=== PATIENT | female | born 1940 | race Hispanic/Latino ===

== ENCOUNTER 2017-09-25 08:48 | Inpatient (IN) | payer MEDICARE, BC ==
[2017-09-25 09:06] VITALS: BMI 31.2
[2017-09-25] MEDS ORDERED: Albuterol-Ipratrop 3 mg / 0.5 (3 ml) UD IH STA (09:11)
[2017-09-25] MEDS ORDERED: Azithromycin 500MG/NS 250ml 500 MG/250 ML BAG IVPB STA (09:11)
--- NOTE | 2017-09-25 09:15 | ED PDOC ---
Arrival/HPI - General Chief Complaint: Flu-like Symptoms Time Seen by Provider: 09/25/17 09:02 Historian: Patient - History of Present Illness Time/Duration: Other (2 days) Symptom Onset: Gradual Symptom Course: Worsening Severity Level: Moderate Activities at Onset: Rest Associated Symptoms (Text): 09/25/17 09:13 Patient presents via ambulance [place] the cruise ship. Reports a 2 day history of a cough productive of green sputum with shortness of breath feeling feverish with chills. There has been wheezing. She was seen by the cruise ship doctor this morning and found to be hypoxic with a pulse oximetry of 90. She was febrile to 103. She had an elevated white blood cell count of 28,000. There was pneumonia on her chest x-ray. She was treated with high flow nebulizer treatments and Rocephin IV. She was transported to the emergency department via ambulance. Family/Social History - Physician Review Nursing Documentation Reviewed: Yes Family/Social History: Unknown Family HX Smoking Status: Former Smoker (Quit smoking 20 years ago) Hx Alcohol Use: Yes Frequency of alcohol use: Socially Hx Substance Use: No Allergies/Home Meds Allergies/Adverse Reactions: Allergies No Known Allergies Allergy (Verified 09/25/17 12:01) Home Medications: Home Meds Medication Instructions Recorded Confirmed Albuterol 0.083% [Albuterol 0.083% 1 vial NEB Q6 PRN 09/25/17 09/25/17 Inhal Cecilia (2.5 mg/3 ml) UD] Atorvastatin [Lipitor] 10 mg PO DAILY 09/25/17 09/25/17 Eszopiclone [Lunesta] 3 mg PO HS 09/25/17 09/25/17 Lamotrigine [Lamictal] 200 mg PO DAILY 09/25/17 09/25/17 Mometasone/Formoterol [Dulera 100 1 puff NEB DAILY 09/25/17 09/25/17 Mcg/5 Mcg Inhaler] Montelukast [Singulair] 10 mg PO DAILY 09/25/17 09/25/17 Pantoprazole Sodium [Protonix] 40 mg PO DAILY 09/25/17 09/25/17 Tiotropium [Spiriva] 1 cap PO BID 09/25/17 09/25/17 Valsartan [Diovan] 160 mg PO DAILY 09/25/17 09/25/17 Venlafaxine [Effexor] 37.5 mg PO DAILY 09/25/17 09/25/17 Review of Systems - Physician Review All systems were reviewed & negative as marked: Yes - Review of Systems Constitutional: Fatigue, Fevers Respiratory: SOB, Cough, Sputum, Wheezing Cardiovascular: absent: Chest Pain Gastrointestinal: absent: Abdominal Pain, Nausea, Vomiting Neurological: absent: Headache, Dizziness Physical Exam Vital Signs Temp Pulse Resp BP Pulse Ox 09/25/17 12:06 18 113/63 97 09/25/17 09:02 98.1 F 108 H 16 113/63 91 L Temperature: Afebrile Blood Pressure: Normal Pulse: Tachycardic Respiratory Rate: Normal Appearance: Positive for: Well-Appearing, Non-Toxic, Comfortable, Uncomfortable Pain Distress: None Mental Status: Positive for: Alert and Oriented X 3 - Systems Exam Head: Present: Atraumatic, Normocephalic Pupils: Present: PERRL Extroacular Muscles: Present: EOMI Conjunctiva: Present: Normal Ears: Present: NORMAL TM, Normal Canal. No: Erythema, TM Bulging Mouth: Present: Moist Mucous Membranes Pharnyx: No: ERYTHEMA, EXUDATE, TONSILS ENLARGED Neck: Present: Normal Range of Motion Respiratory/Chest: Present: Wheezes, Decreased Breath Sounds, Rhonchi. No: Respiratory Distress, Accessory Muscle Use, Rales, Retracting, Tachypneic Cardiovascular: Present: Regular Rate and Rhythm, Tachycardic Abdomen: No: Tenderness, Distention, Peritoneal Signs, Rebound, Guarding Upper Extremity: Present: Normal Inspection. No: Cyanosis, Edema Lower Extremity: Present: Normal Inspection. No: Edema Neurological: Present: GCS=15, CN II-XII Intact, Speech Normal, Motor Func Grossly Intact Skin: Present: Warm, Dry, Normal Color. No: Rashes Psychiatric: Present: Alert, Oriented x 3, Normal Insight, Normal Concentration Medical Decision Making ED Course and Treatment: 09/25/17 12:27 EKG shows sinus tachycardia rate approximately 105 with poor R-wave progression and nonspecific ST and T-wave changes and no old available for comparison. - Lab Interpretations Lab Results: 09/25/17 09:25 09/25/17 09:25 Lab Results 09/25/17 09:25: Sodium 143, Chloride 109 H, Potassium 3.7, Carbon Dioxide 18 L, Anion Gap 20, BUN 29 H, Creatinine 1.5 H, Est GFR ( Amer) 41, Est GFR ( Non-Af Amer) 34, Random Glucose 148 H, Calcium 9.7, Phosphorus 2.6, Magnesium 2.3 H, Total Bilirubin 0.4, AST 18, ALT 26, Alkaline Phosphatase 87, Total Protein 6.0, Albumin 3.7, Globulin 2.3, Albumin/Globulin Ratio 1.6 09/25/17 09:25: pO2 210 H, VBG pH 7.37, VBG pCO2 35.0 L, VBG HCO3 20.2 L, VBG Total CO2 21.3 L, VBG O2 Sat (Calc) 98.5 H, VBG Base Excess -4.4 L, VBG Potassium 4.1, Sodium 136.0, Chloride 108.0 H, Glucose 163 H, Lactate 1.6, FiO2 21.0, Venous Blood Potassium 4.1 09/25/17 09:25: Urine Color Yellow, Urine Appearance Slight-cloudy, Urine pH 6.0 , Ur Specific [place] 1.025, Urine Protein 100 H, Urine Glucose (UA) Negative, Urine Ketones Negative, Urine Blood Negative, Urine Nitrate Negative, Urine Bilirubin Negative, Urine Urobilinogen 0.2, Ur Leukocyte Esterase Small H, Urine RBC 0 - 2, Urine WBC 5 - 10, Ur Epithelial Cells 10 - 12, Amorphous Sediment Small 09/25/17 09:25: WBC 28.7 H*, RBC 4.13, Hgb 10.0 L, Hct 31.9 L, MCV 77.2 L, MCH 24.2 L, MCHC 31.3, RDW 17.2 H, Plt Count 340, MPV 9.2, Gran % 84.1 H, Lymph % ( Auto) 7.1 L, [place]ell % (Auto) 8.8 H, Eos % (Auto) 0.0 L, Baso % (Auto) 0.0, Gran # 24.16 H, Lymph # (Auto) 2.0, Howell # (Auto) 2.5 H, Eos # (Auto) 0.0, Baso # (Auto ) 0.01 - RAD Interpretation Radiology Orders: 09/25/17 09:10 CHEST PORTABLE [RAD] Stat Chest one view shows a positive right-sided infiltrate. 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 - Medication Orders Current Medication Orders: Acetaminophen (Tylenol 325mg Tab) 650 mg PO Q6H PRN PRN Reason: Fever >100.4 F Albuterol/Ipratropium (Duoneb 3 Mg/0.5 Mg (3 Ml) Ud) 3 ml IH Q2H PRN PRN Reason: Shortness of Breath Albuterol/Ipratropium (Duoneb 3 Mg/0.5 Mg (3 Ml) Ud) 3 ml IH [id number] [facility] Last Admin: 09/25/17 13:16 Dose: 3 ml Aspirin (Ecotrin) 81 mg PO 0800 [facility] Ceftriaxone Sodium (Rocephin 1 Gram Ivpb) 1 gm in 100 mls @ 100 mls/hr IVPB DAILY [facility] PRN Reason: Protocol Last Admin: 09/25/17 12:19 Dose: 100 mls/hr eMAR Start Stop Document 09/25/17 12:19 OCS (Rec: 09/25/17 12:19 [facility]CS [id number]) Intravenous Solution Start Date 09/25/17 Start Time 12:19 Azithromycin (Zithromax 500mg In Ns) 500 mg in 250 mls @ 167 mls/hr IVPB DAILY [facility] PRN Reason: Protocol Lamotrigine (Lamictal) 200 mg PO DAILY [facility] Methylprednisolone (Solu-Medrol) 40 mg IV Q12 [facility] Montelukast Sodium (Singulair) 10 mg PO DAILY [facility] Last Admin: 09/25/17 12:19 Dose: 10 mg Ondansetron HCl (Zofran Inj) 4 mg IVP Q6H PRN PRN Reason: Nausea/Vomiting Pantoprazole Sodium (Protonix Ec Tab) 40 mg PO 0630 [facility] Venlafaxine HCl (Effexor) 37.5 mg PO DAILY [facility] Discontinued Medications Albuterol/Ipratropium (Duoneb 3 Mg/0.5 Mg (3 Ml) Ud) 3 ml IH ONCE STA Stop: 09/25/17 09:12 Last Admin: 09/25/17 09:43 Dose: 3 ml Azithromycin (Zithromax 500mg In Ns) 500 mg in 250 mls @ 167 mls/hr IVPB STAT [facility] PRN Reason: Protocol Stop: 09/25/17 10:40 Last Admin: 09/25/17 09:44 Dose: 167 mls/hr eMAR Start Stop Document 09/25/17 09:44 SF (Rec: 09/25/17 09:44 SF [id number]) Intravenous Solution Start Date 09/25/17 Start Time 09:44 End Date 09/25/17 End time 11:15 Total Infusion Time 91 Lamotrigine (Lamictal) 200 mg PO .EXTRA DOSE ONE Stop: 09/25/17 11:31 Non-Formulary Medication (Lamotrigine [Lamictal]) 200 mg PO DAILY [facility] Pneumococcal Polyvalent Vaccine (Pneumovax 23 Vaccine) 0.5 ml IM .ONCE ONE Stop: 09/25/17 14:07 Disposition/Present on Arrival - Present on Arrival Any Indicators Present on Arrival: No History of DVT/PE: No History of Uncontrolled Diabetes: No Urinary Catheter: No History of Decub. Ulcer: No - Disposition Have Diagnosis and Disposition been Completed?: Yes Diagnosis: Pneumonia, Hypoxia, Fever, Leukocytosis, Anemia, Dehydration, Renal failure, Dyspnea Disposition: HOSPITALIZED Disposition Time: 10:11 Patient Plan: Admission Patient Problems: Current Active Problems Problem Status Onset Anemia Acute Dehydration Acute Dyspnea Acute Fever Acute Hypoxia Acute Leukocytosis Acute Pneumonia Acute Renal failure Acute Condition: FAIR
[2017-09-25 09:51] LABS: BASO # 0.01 K/mm3 (0.0-2.0); GRAN # 24.16 (1.4-6.5); GRAN % 84.1 % (50.0-68.0); LYMPH % 7.1 % (22.0-35.0); MEAN CELL VOLUME 77.2 fl (80.0-105.0); MEAN CORPUSCULAR HEMOGLOBIN 24.2 pg (25.0-35.0); MEAN CORPUSCULAR HGB CONC 31.3 g/dl (31.0-37.0); MEAN PLATELET VOLUME 9.2 fl (7.0-11.0); MONO # 2.5 (0.1-0.6); MONO % 8.8 % (1.0-6.0); RBC 4.13 10^6/uL (3.5-6.1); RED CELL DISTRIBUTION WIDTH 17.2 % (11.5-14.5)
[2017-09-25 09:53] LABS: VENOUS BLOOD GAS BASE EXCESS -4.4 mmol/L (0.0-2.0); VENOUS BLOOD GAS PO2 210 mm/Hg (30-55); VENOUS BLOOD PH 7.37 (7.32-7.43); WHITE BLOOD COUNT 28.7 10^3/ul (4.5-11.0)
[2017-09-25 10:03] LABS: ALB/GLOB RATIO 1.6 (1.1-1.8); ALBUMIN 3.7 g/dL (3.0-4.8); CALCIUM 9.7 mg/dL (8.4-10.5)
[2017-09-25 10:07] LABS: URINE BILIRUBIN NEGATIVE (NEGATIVE); URINE BLOOD NEGATIVE (NEGATIVE); URINE GLUCOSE (UA) NEGATIVE (NEGATIVE); URINE LEUKOCYTE ESTERASE SMALL Leu/uL (NEGATIVE); URINE PROTEIN 100 mg/dL (<30 mg/dL); URINE UROBILINOGEN 0.2 E.U./dL (<1 E.U./dL)
[2017-09-25 10:08] LABS: URINE COLOR YELLOW (YELLOW)
[2017-09-25 10:09] LABS: URINE APPEARANCE SLIGHT-CLOUDY (CLEAR)
[2017-09-25] MEDS ORDERED: Albuterol-Ipratrop 3 mg / 0.5 (3 ml) UD IH PRN (11:12)
[2017-09-25 11:29] LABS: URINE AMORPHOUS SEDIMENT SMALL; URINE RBC 0 - 2 /hpf (0-2)
[2017-09-25] MEDS: cefTRIAXone 1 gm 1 GM/100 ML BAG IVPB SCH (12:19)
[2017-09-25] MEDS: Albuterol-Ipratrop 3 mg / 0.5 (3 ml) UD IH SCH ×2 (13:16→21:21)
--- NOTE | 2017-09-25 13:34 | RAD ---
HISTORY: Sepsis Patient COMPARISON: No prior. FINDINGS: LUNGS: Patchy atelectasis and or infiltrate changes seen in the right mid to lower lung zone. Suspect minor left basilar atelectasis or scarring. PLEURA: No significant pleural effusion identified, no pneumothorax apparent. CARDIOVASCULAR: Heart size within range of normal. There is a radiopaque density overlying the mid cardiac silhouette which could represent a hiatal hernia OSSEOUS STRUCTURES: No significant abnormalities. VISUALIZED UPPER ABDOMEN: Normal. OTHER FINDINGS: None. IMPRESSION: Patchy atelectasis and or infiltrate changes seen in the right mid to lower lung zone. Suspect minor left basilar atelectasis or scarring.
[2017-09-25] MEDS ORDERED: Pneumococcal 23-Valent Vaccine IM ONE (14:06)
--- NOTE | 2017-09-25 14:08 | CT ---
PROCEDURE: CT Chest without contrast HISTORY: SOB COMPARISON: Correlation made with chest radiograph obtained earlier same day TECHNIQUE: Contiguous axial images were obtained through the chest without intravenous contrast enhancement. Sagittal and coronal reconstructions were performed. Radiation dose (DLP): 534.98 mGy-cm. This CT exam was performed using one or more of the following dose reduction techniques: Automated exposure control, adjustment of the mA and/or kV according to patient size, and/or use of iterative reconstruction technique. . FINDINGS: LUNGS: Patchy infiltrate changes seen in the right middle lobe with what appears represent associated bronchiectasis -atelectasis, fibrosis and or scarring changes. . There also areas of ground-glass opacity seen in the left upper lobe with linear atelectasis/scarring in the right lung base and left lingular regions. . Note also made of localized on herniation of lung parenchyma through the right lower intercostal spaces in 2 locations. MEDIASTINUM: Heart size is within range of normal. No significant pericardial effusion. Ascending thoracic aorta measures approximately 3.1 cm and descending thoracic aorta measures approximately 2.6 cm. Right brachiocephalic and left carotid artery arise from a common trunk. Pulmonary trunk measures approximately 2.6 cm. . There does appear to be a small amount of fluid within the superior pericardial the the recess. PLEURA: No pleural fluid. No pneumothorax. BONES: Minor multilevel degenerative spondylosis of the thoracic spine. There are no acute compression fractures no retropulsed fragments. UPPER ABDOMEN: There is a small approximately 11.4 mm elliptical shaped low-attenuation focus in the caudate lobe liver that probably represents small cyst. 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 OTHER FINDINGS: None. IMPRESSION: Patchy infiltrate changes seen in the right middle lobe with what appears represent associated bronchiectasis -atelectasis, fibrosis and or scarring changes. . There also areas of ground-glass opacity seen in the left upper lobe with linear atelectasis/scarring in the right lung base and left lingular regions. . Note also made of localized on herniation of lung parenchyma through the right lower intercostal spaces in 2 locations.
[2017-09-25] MEDS: Pantoprazole 40 mg EC Tab PO SCH (17:57)
[2017-09-25] MEDS: MethylPREDNISolone 40 mg Vial IV SCH (22:38)
[2017-09-26] MEDS: Albuterol-Ipratrop 3 mg / 0.5 (3 ml) UD IH SCH ×4 (02:54→21:10)
--- NOTE | 2017-09-26 05:29 | HP ---
HISTORY OF PRESENT ILLNESS: The patient is 76-year-old who was in cruise. The patient resides in [place]. She just came back from cruise. She was having cough and congestion. She was found to be hypoxic in the cruise, so she was brought to emergency room for further evaluation. Denies any fever. Did complain of increasing cough, congestion with productive thick yellow phlegm. Denies any chest pain. Does complain of shortness of breath. No history of nausea. No abdominal pain. No hemoptysis. No hematemesis. PAST MEDICAL HISTORY: Significant for: 1. Hypertension. 2. COPD and asthma. 3. History of depression. 4. History of esophageal reflux disease. 5. Seizure disorder. 6. Hyperlipidemia. ALLERGIES: SHE IS ALLERGIC TO CAT DANDER AND MOLD. MEDICATION AT HOME: She is on Lunesta. She is on Effexor 200 daily, valsartan 160 daily, Spiriva one inhaler daily, Protonix 40 daily, Singulair 10 mg daily, Advair, Lamictal 200 mg daily, Lipitor 10 mg daily. SOCIAL HISTORY: She is . Lives with her , used to be smoker, but not anymore, quit couple of years ago. Socially drinks. REVIEW OF SYSTEMS: Significant for cough, congestion and shortness of breath. PHYSICAL EXAMINATION: GENERAL: The patient is awake, alert, and oriented. Mild shortness of breath. VITAL SIGNS: She is afebrile, pulse 96, respirations 20, blood pressure 104/50. LUNGS: Bilateral soft crackle at bases. HEART: S1 and S2 audible. ABDOMEN: Soft, obese, nontender. No rebound. No guarding. NEUROLOGICAL: She is awake, alert, oriented, communicative. LABORATORY DATA: WBC is 28.7, hemoglobin 10, hematocrit 31.9, platelets 340. Chemistry: Sodium 143, potassium 3.7, chloride 109, CO2 is 18, BUN 29, creatinine 1.5. Blood sugar of 148. Magnesium 2.3. Procalcitonin 0.6. Urinalysis shows mild leukocytes. CT scan of the chest was done that shows fatty infiltrate in the right middle lobe which appears bronchiectasis, fibrosis and scarring. Also ground glass opacity seen in the left upper lobe. ASSESSMENT: 1. Right middle lobe pneumonia and left upper lobe pneumonia. 2. History of chronic obstructive pulmonary disease. 3. Hypertension. 4. Hyperlipidemia. 5. Moderate obesity. PLAN: The patient has been started on Rocephin. We will add atypical coverage and the patient will receive Zithromax. Start her on small dose of steroid and ID consult by Dr. Welsh has been requested. Samina Reynolds MD
[2017-09-26] MEDS: Pantoprazole 40 mg EC Tab PO SCH ×2 (06:09→17:06)
[2017-09-26] MEDS ORDERED: Pantoprazole 40 mg EC Tab PO SCH (06:30)
[2017-09-26] MEDS: cefTRIAXone 1 gm 1 GM/100 ML BAG IVPB SCH (09:18)
[2017-09-26] MEDS: Venlafaxine 75 mg ER Cap PO SCH (09:20)
[2017-09-26] MEDS: MethylPREDNISolone 40 mg Vial IV SCH ×2 (09:20→21:37)
--- NOTE | 2017-09-26 09:30 | CARD ---
APPROVED REPORT EKG Measurement Heart [id number] [place] [id number] <Conclusion> Sinus tachycardia Possible Left atrial enlargement Nonspecific ST and T wave abnormality QS in V1, possible septal NM, age unknown
[2017-09-26] MEDS: Azithromycin 500MG/NS 250ml 500 MG/250 ML BAG IVPB SCH (12:20)
--- NOTE | 2017-09-26 14:42 | CP.PCM.CON ---
History of Present Illness - History of Present Illness History of Present Illness: 76 year old female with PMH of COPD, obesity with BMI 31 was on a cruise ship when she started developing cough productive of greenish phlegm, associated with shortness of breath and dyspnea on exertion. She had subjective chills. She denies headache or dizziness, no chest pain, no sore throat, no rhinorrhea, no abdominal pain, no nausea or vomiting, no diarrhea, no dysuria, no hematuria. CXR and CT chest were done which is showing multilobar infiltrates. As per patient, she was given antibiotics about a month ago for respiratory infection. She denies interacting with specific animals during the cruise. The cruise went to the [facility]. Infectious diseases consult is requested to further evaluate and manage. Review of Systems - Review of Systems All systems: reviewed and no additional remarkable complaints except (as per HPI ) Past Patient History - Past Social History Smoking Status: Former Smoker (Quit smoking 20 years ago) - CARDIAC Hx Cardiac Disorders: Yes Hx Hypercholesterolemia: Yes Hx Hypertension: Yes - PULMONARY Hx Respiratory Disorders: Yes (smoked cigarettes quit 20 yrs ago.) Hx Asthma: Yes Hx Pneumonia: Yes (09-25-17) - NEUROLOGICAL Hx Neurological Disorder: No - HEENT Hx HEENT Problems: Yes (trheaomalacia with sx,tonsillectomy) Hx Cataracts: Yes (with sx) - RENAL Hx Chronic Kidney Disease: No - ENDOCRINE/METABOLIC Hx Endocrine Disorders: No - HEMATOLOGICAL/ONCOLOGICAL Hx Blood Disorders: Yes Hx Anemia: Yes - INTEGUMENTARY Hx Dermatological Problems: No - MUSCULOSKELETAL/RHEUMATOLOGICAL Hx Musculoskeletal Disorders: No Hx Falls: No - GASTROINTESTINAL Hx Gastrointestinal Disorders: Yes Hx Gastroesophageal Reflux: Yes - GENITOURINARY/GYNECOLOGICAL Hx Genitourinary Disorders: No - PSYCHIATRIC Hx Substance Use: No - SURGICAL HISTORY Hx Surgeries: Yes (bilateral cataract sx,tonsillectomy) Other/Comment: Tracheomalacia repair Meds Allergies/Adverse Reactions: Allergies Allergy/AdvReac Type Severity Reaction Status Date / Time cat dander Allergy SHORTNESS Verified 09/25/17 14:19 OF BREATH mold Allergy SHORTNESS Verified 09/25/17 14:19 OF BREATH - Medications Medications: Current Medications Acetaminophen (Tylenol 325mg Tab) 650 mg PO Q6H PRN PRN Reason: Fever >100.4 F Albuterol/Ipratropium (Duoneb 3 Mg/0.5 Mg (3 Ml) Ud) 3 ml IH Q2H PRN PRN Reason: Shortness of Breath Albuterol/Ipratropium (Duoneb 3 Mg/0.5 Mg (3 Ml) Ud) 3 ml IH [id number] [facility] Last Admin: 09/25/17 21:21 Dose: 3 ml Aspirin (Ecotrin) 81 mg PO 0800 [facility] Ceftriaxone Sodium (Rocephin 1 Gram Ivpb) 1 gm in 100 mls @ 100 mls/hr IVPB DAILY [facility] PRN Reason: Protocol Last Admin: 09/25/17 12:19 Dose: 100 mls/hr Azithromycin (Zithromax 500mg In Ns) 500 mg in 250 mls @ 167 mls/hr IVPB DAILY [facility] PRN Reason: Protocol Lamotrigine (Lamictal) 200 mg PO DAILY [facility] Methylprednisolone (Solu-Medrol) 40 mg IV Q12 [facility] Montelukast Sodium (Singulair) 10 mg PO DAILY [facility] Last Admin: 09/25/17 12:19 Dose: 10 mg Ondansetron HCl (Zofran Inj) 4 mg IVP Q6H PRN PRN Reason: Nausea/Vomiting Pantoprazole Sodium (Protonix Ec Tab) 40 mg PO 0600,1800 [facility] Last Admin: 09/25/17 17:57 Dose: 40 mg Venlafaxine HCl (Effexor Xr) 225 mg PO DAILY [facility] Zolpidem Tartrate (Ambien) 5 mg PO HS [facility] PRN Reason: Protocol Physical Exam - Constitutional Appears: Chronically Ill - Head Exam Head Exam: NORMAL INSPECTION - ENT Exam ENT Exam: Mucous Membranes Moist - Neck Exam Neck exam: Negative for: Meningismus - Respiratory Exam Respiratory Exam: Decreased Breath Sounds, Rales, Wheezes - Cardiovascular Exam Cardiovascular Exam: +S1, +S2 - GI/Abdominal Exam GI & Abdominal Exam: Soft. absent: Tenderness Results - Vital Signs Recent Vital Signs: Last Vital Signs Temp 97.8 F 09/25/17 14:00 Pulse 96 H 09/25/17 14:00 Resp 20 09/25/17 14:00 BP 104/49 L 09/25/17 14:00 Pulse Ox 96 09/25/17 14:00 - Labs Result Diagrams: 09/25/17 09:25 09/25/17 09:25 Labs: Laboratory Results - last 24 hr 09/25/17 12:00 Procalcitonin 0.60 H Assessment & Plan - Assessment and Plan (Free Text) Plan: Assessment Severe sepsis with acute renal failure due to multifocal HCAP (exposure to antibiotics in the last month) COPD obesity with BMI 31 Plan Patient was started on Rocephin and Zithromax - will change Rocephin to a dose of IV Vancomycin and cefepime pending blood, sputum cx; reviewed CT chest; PCT is elevated 0.6; will also check urine Legionella Ag will monitor clinically
[2017-09-26] MEDS ORDERED: Vancomycin 1.5 GM in Sodium Chloride 0.9% 500 ML IVPB ONE (14:45)
[2017-09-26] MEDS: Cefepime IV 2 gm in NS 2 GM/100 ML BAG IVPB SCH ×2 (15:17→21:36)
--- NOTE | 2017-09-26 17:27 | PN ---
DATE: 09/26/2017 SUBJECTIVE: The patient is 76 years old, seen and examined. She states she feels a lot better. Denies any nausea or vomiting. No diarrhea. She states her cough and congestion has improved since she is admitted since yesterday. PHYSICAL EXAMINATION: GENERAL: She is sitting in libia, seems to be comfortable. VITAL SIGNS: She is afebrile, pulse 92, respirations 20, blood pressure 120/63. LUNGS: Bilateral fair airflow. Has soft crackle in the left middle and the lower lung region. HEART: S1 and S2 audible. ABDOMEN: Soft, obese. Nontender. No rebound. No guarding. NEUROLOGIC: She is awake, alert, oriented, communicative. LABORATORY EXAM: Blood cultures are negative. Procalcitonin is 0.50. ASSESSMENT: 1. Community-acquired pneumonia. 2. Mild renal insufficiency. 3. History of chronic obstructive pulmonary disease. 4. Leukocytosis. 5. History of depression. 6. History of gastroesophageal reflux disease. PLAN: We will continue the patient on Maxipime. She is on Zithromax. I will request for Physical Therapy evaluation. Follow up CBC and CMP in the a.m. Samina Reynolds MD
[2017-09-27] MEDS: Albuterol-Ipratrop 3 mg / 0.5 (3 ml) UD IH SCH ×4 (02:49→21:15)
[2017-09-27] MEDS: Pantoprazole 40 mg EC Tab PO SCH ×2 (05:49→18:04)
[2017-09-27 07:24] LABS: GRAN # 16.2 (1.4-6.5); GRAN % 84.3 % (50.0-68.0); LYMPH # 1.7 (1.2-3.4); LYMPH % 8.8 % (22.0-35.0); MEAN CELL VOLUME 77.7 fl (80.0-105.0); MEAN CORPUSCULAR HEMOGLOBIN 23.9 pg (25.0-35.0); MEAN CORPUSCULAR HGB CONC 30.8 g/dl (31.0-37.0); MEAN PLATELET VOLUME 9.1 fl (7.0-11.0); MONO # 1.3 (0.1-0.6); MONO % 6.9 % (1.0-6.0); RBC 3.76 10^6/uL (3.5-6.1); RED CELL DISTRIBUTION WIDTH 17.2 % (11.5-14.5); WHITE BLOOD COUNT 19.2 10^3/ul (4.5-11.0)
[2017-09-27 07:37] LABS: ALB/GLOB RATIO 1.5 (1.1-1.8); ALBUMIN 3.3 g/dL (3.0-4.8); CALCIUM 9.9 mg/dL (8.4-10.5)
[2017-09-27 07:47] LABS: FREE T4 1.09 ng/dL (0.78-2.19)
[2017-09-27] MEDS: Cefepime IV 2 gm in NS 2 GM/100 ML BAG IVPB SCH ×2 (09:25→22:09)
[2017-09-27] MEDS: Venlafaxine 75 mg ER Cap PO SCH (09:33)
[2017-09-27] MEDS: Azithromycin 500MG/NS 250ml 500 MG/250 ML BAG IVPB SCH (09:34)
[2017-09-27] MEDS: MethylPREDNISolone 40 mg Vial IV SCH (09:34)
[2017-09-27] MEDS ORDERED: POLYETHYLENE GLYCOL 3350 17 GM/Dose PACKET PO ONE (11:18)
--- NOTE | 2017-09-27 13:34 | CP.PCM.PN ---
Subjective - Date & Time of Evaluation Date of Evaluation: 09/27/17 Time of Evaluation: 10:50 - Subjective Subjective: Comfortable, breathing better, no nausea, no diarrhea, cough is slowly improving , no fevers. Objective - Vital Signs/Intake and Output Vital Signs (last 24 hours): Temp Pulse Resp BP Pulse Ox 97.5 F L 71 20 140/56 L 99 09/27/17 08:21 09/27/17 08:21 09/27/17 08:21 09/27/17 08:21 09/27/17 08:21 Intake and Output: 09/27/17 09/27/17 06:59 18:59 Intake Total 700 Balance 700 - Medications Medications: Current Medications Acetaminophen (Tylenol 325mg Tab) 650 mg PO Q6H PRN PRN Reason: Fever >100.4 F Albuterol/Ipratropium (Duoneb 3 Mg/0.5 Mg (3 Ml) Ud) 3 ml IH Q2H PRN PRN Reason: Shortness of Breath Albuterol/Ipratropium (Duoneb 3 Mg/0.5 Mg (3 Ml) Ud) 3 ml IH [id number] [facility] Last Admin: 09/27/17 08:18 Dose: 3 ml Aspirin (Ecotrin) 81 mg PO 0800 [facility] Last Admin: 09/27/17 08:32 Dose: 81 mg Atorvastatin Calcium (Lipitor) 10 mg PO DIN [facility] Last Admin: 09/26/17 23:00 Dose: Not Given Azithromycin (Zithromax 500mg In Ns) 500 mg in 250 mls @ 167 mls/hr IVPB DAILY [facility] PRN Reason: Protocol Last Admin: 09/27/17 09:34 Dose: 167 mls/hr Cefepime HCl (Maxipime 2gm) 2 gm in 100 mls @ 100 mls/hr IVPB Q12 [facility] PRN Reason: Protocol Stop: 10/03/17 14:46 Last Admin: 09/27/17 09:25 Dose: 100 mls/hr Lamotrigine (Lamictal) 200 mg PO DAILY [facility] Last Admin: 09/27/17 09:36 Dose: 200 mg Losartan Potassium (Cozaar) 100 mg PO DAILY [facility] Last Admin: 09/27/17 09:33 Dose: 100 mg Methylprednisolone (Solu-Medrol) 40 mg IV Q12 [facility] Last Admin: 09/27/17 09:34 Dose: 40 mg Montelukast Sodium (Singulair) 10 mg PO HS [facility] Last Admin: 09/26/17 21:37 Dose: 10 mg Ondansetron HCl (Zofran Inj) 4 mg IVP Q6H PRN PRN Reason: Nausea/Vomiting Pantoprazole Sodium (Protonix Ec Tab) 40 mg PO 0600,1800 [facility] Last Admin: 09/27/17 05:49 Dose: 40 mg Venlafaxine HCl (Effexor Xr) 225 mg PO DAILY [facility] Last Admin: 09/27/17 09:33 Dose: 225 mg Zolpidem Tartrate (Ambien) 5 mg PO HS [facility] PRN Reason: Protocol Last Admin: 09/26/17 22:31 Dose: 5 mg - Labs Labs: 09/27/17 07:00 09/27/17 07:00 - Constitutional Appears: Chronically Ill - Head Exam Head Exam: NORMAL INSPECTION - ENT Exam ENT Exam: Mucous Membranes Moist - Neck Exam Neck Exam: absent: Lymphadenopathy, Meningismus - Respiratory Exam Respiratory Exam: Decreased Breath Sounds, Wheezes - Cardiovascular Exam Cardiovascular Exam: +S1, +S2 - GI/Abdominal Exam GI & Abdominal Exam: Soft. absent: Tenderness Assessment and Plan - Assessment and Plan (Free Text) Plan: Assessment Severe sepsis with acute renal failure due to multifocal HCAP (exposure to antibiotics in the last month), slowly improving COPD obesity with BMI 31 Plan continue Zithromax and cefepime day 2; pending blood, sputum cx; reviewed CT chest; PCT is elevated 0.75; follow up urine Legionella Ag; if patient continues to improve clinically and cultures are negative, may be able to switch to PO antibiotics by tomorrow will continue to monitor clinically
--- NOTE | 2017-09-27 19:30 | PN ---
DATE: 09/27/2017 SUBJECTIVE: The patient is 76 years old, seen and examined, lying in the bed, seems to be comfortable. She says she is not better that is compared to day of admission. She still has cough and congestion with mild shortness of breath. PHYSICAL EXAMINATION: VITAL SIGNS: She is afebrile, pulse 60, respirations 20, blood pressure 137/92. LUNGS: Bilateral expiratory rhonchi. HEART: S1 and S2 audible. ABDOMEN: Soft, obese, nontender. No rebound. No guarding. NEUROLOGIC: The patient is awake and alert, communicative. EXTREMITIES: Bilateral legs, no edema. LABORATORY EXAM: Sodium 149, potassium 4.8, chloride 113, CO2 of 24, BUN 24, creatinine 1.1, blood sugar of 134, procalcitonin 0.75. Urinalysis is unremarkable. Legionella is negative. Blood culture, urine cultures are negative. ASSESSMENT: 1. Chronic obstructive pulmonary disease exacerbation. 2. Multilobar pneumonia. 3. History of chronic obstructive pulmonary disease. 4. Hypertension. 5. History of depression. 6. Peptic ulcer disease. 7. Chronic anemia. PLAN: We will continue the patient on current medications. We will start her on oral iron supplementations along with stool softener. She is currently on Maxipime and vancomycin and Zithromax. We will reevaluate the patient in the a.m. Taper down steroid further and monitor as positive and improvement and make disposition plan. Samina Reynolds MD
[2017-09-27] MEDS: MethylPREDNISolone 40 mg Vial IVP SCH (21:19)
[2017-09-28] MEDS: Albuterol-Ipratrop 3 mg / 0.5 (3 ml) UD IH SCH ×3 (02:45→13:21)
[2017-09-28] MEDS: Pantoprazole 40 mg EC Tab PO SCH (06:28)
[2017-09-28 08:12] VITALS: BP 157/74; PULSE 80; RESP 20; TEMP 98.1; O2SAT 98
[2017-09-28] MEDS: Cefepime IV 2 gm in NS 2 GM/100 ML BAG IVPB SCH (09:29)
[2017-09-28] MEDS: MethylPREDNISolone 40 mg Vial IVP SCH (09:30)
[2017-09-28] MEDS: Azithromycin 500MG/NS 250ml 500 MG/250 ML BAG IVPB SCH (09:30)
[2017-09-28] MEDS: Venlafaxine 75 mg ER Cap PO SCH (09:32)
[2017-09-28 09:45] LABS: BASO # 0.01 K/mm3 (0.0-2.0); BASO % 0.1 % (0.0-3.0); EOS % 0.1 % (1.5-5.0); GRAN # 11.95 (1.4-6.5); GRAN % 74.9 % (50.0-68.0); HEMOGLOBIN 9.6 g/dL (12.0-16.0); LYMPH # 2.9 (1.2-3.4); LYMPH % 17.9 % (22.0-35.0); MEAN CELL VOLUME 77.8 fl (80.0-105.0); MEAN CORPUSCULAR HEMOGLOBIN 23.9 pg (25.0-35.0); MEAN CORPUSCULAR HGB CONC 30.8 g/dl (31.0-37.0); MEAN PLATELET VOLUME 8.9 fl (7.0-11.0); MONO # 1.1 (0.1-0.6); RBC 4.01 10^6/uL (3.5-6.1); RED CELL DISTRIBUTION WIDTH 17.2 % (11.5-14.5); WHITE BLOOD COUNT 15.9 10^3/ul (4.5-11.0)
[2017-09-28 09:57] LABS: ALB/GLOB RATIO 1.4 (1.1-1.8); ALBUMIN 3.8 g/dL (3.0-4.8); CALCIUM 10.5 mg/dL (8.4-10.5)
--- NOTE | 2017-09-28 12:35 | CP.PCM.PN ---
Subjective - Date & Time of Evaluation Date of Evaluation: 09/28/17 Time of Evaluation: 10:55 - Subjective Subjective: Patient is feeling better, no fevers, cough is improved, breathing much better. Objective - Vital Signs/Intake and Output Vital Signs (last 24 hours): Temp Pulse Resp BP Pulse Ox 98.5 F 81 18 105/82 99 09/27/17 22:22 09/27/17 22:22 09/27/17 22:22 09/27/17 22:22 09/27/17 22:22 Intake and Output: 09/28/17 09/28/17 06:59 18:59 Intake Total 480 Balance 480 - Medications Medications: Current Medications Acetaminophen (Tylenol 325mg Tab) 650 mg PO Q6H PRN PRN Reason: Fever >100.4 F Albuterol/Ipratropium (Duoneb 3 Mg/0.5 Mg (3 Ml) Ud) 3 ml IH Q2H PRN PRN Reason: Shortness of Breath Albuterol/Ipratropium (Duoneb 3 Mg/0.5 Mg (3 Ml) Ud) 3 ml IH [id number] [facility] Last Admin: 09/28/17 02:45 Dose: Not Given Aspirin (Ecotrin) 81 mg PO 0800 [facility] Last Admin: 09/27/17 08:32 Dose: 81 mg Atorvastatin Calcium (Lipitor) 10 mg PO DIN [facility] Last Admin: 09/27/17 18:04 Dose: 10 mg Docusate Sodium (Colace) 100 mg PO BID [facility] Last Admin: 09/27/17 18:04 Dose: 100 mg Ferrous Sulfate (Feosol) 324 mg PO BID [facility] Last Admin: 09/27/17 18:04 Dose: 324 mg Azithromycin (Zithromax 500mg In Ns) 500 mg in 250 mls @ 167 mls/hr IVPB DAILY [facility] PRN Reason: Protocol Last Admin: 09/27/17 09:34 Dose: 167 mls/hr Cefepime HCl (Maxipime 2gm) 2 gm in 100 mls @ 100 mls/hr IVPB Q12 [facility] PRN Reason: Protocol Stop: 10/03/17 14:46 Last Admin: 09/27/17 22:09 Dose: 100 mls/hr Lamotrigine (Lamictal) 200 mg PO DAILY [facility] Last Admin: 09/27/17 09:36 Dose: 200 mg Losartan Potassium (Cozaar) 100 mg PO DAILY [facility] Last Admin: 09/27/17 09:33 Dose: 100 mg Methylprednisolone (Solu-Medrol) 30 mg IVP Q12 [facility] Last Admin: 09/27/17 21:19 Dose: 30 mg Montelukast Sodium (Singulair) 10 mg PO HS [facility] Last Admin: 09/27/17 21:20 Dose: 10 mg Ondansetron HCl (Zofran Inj) 4 mg IVP Q6H PRN PRN Reason: Nausea/Vomiting Pantoprazole Sodium (Protonix Ec Tab) 40 mg PO 0600,1800 [facility] Last Admin: 09/28/17 06:28 Dose: 40 mg Venlafaxine HCl (Effexor Xr) 225 mg PO DAILY [facility] Last Admin: 09/27/17 09:33 Dose: 225 mg Zolpidem Tartrate (Ambien) 5 mg PO HS [facility] PRN Reason: Protocol Last Admin: 09/27/17 22:10 Dose: 5 mg - Labs Labs: 09/27/17 07:00 09/27/17 07:00 - Constitutional Appears: Non-toxic, Chronically Ill - Head Exam Head Exam: NORMAL INSPECTION - ENT Exam ENT Exam: Mucous Membranes Moist - Neck Exam Neck Exam: absent: Lymphadenopathy, Meningismus - Respiratory Exam Respiratory Exam: Decreased Breath Sounds, Rales (decreased) - Cardiovascular Exam Cardiovascular Exam: +S1, +S2 - GI/Abdominal Exam GI & Abdominal Exam: Soft. absent: Tenderness Assessment and Plan - Assessment and Plan (Free Text) Plan: Assessment Severe sepsis with acute renal failure due to multifocal HCAP (exposure to antibiotics in the last month), clinically improving COPD obesity with BMI 31 Plan on Zithromax and cefepime day 3;cultures are negative; reviewed CT chest; PCT is elevated 0.75; urine Legionella Ag is negative; we can switch to PO Levaquin 750 mg q48 hours for 3 more doses - will need to follow up with her [facility] Oncology Clinical as an outpatient
--- NOTE | 2017-09-28 14:46 | DS ---
The patient is 76 years old, who was on a cruise and got sick, was hypoxic, short of breath, so was brought to emergency room for further evaluation. She was found to have bilateral pneumonia. PAST MEDICAL HISTORY: 1. The patient does have history of COPD. 2. Hypertension. 3. Chronic anemia. 4. Bipolar disorder. So, the patient was admitted, was given IV steroid, IV antibiotics. Has been doing well, wants to go home. She is anxious. She states she has appointment with her PMD and she want to be switched to p.o. antibiotic. She wants to go home today and her family is on the way to pick her up. PHYSICAL EXAMINATION GENERAL: On examination, she looks comfortable. VITAL SIGNS: She is afebrile, pulse 80, respirations 20, blood pressure 157/74. LUNGS: Bilateral fair airflow. No rhonchi or crackle. HEART: S1, S2 audible. ABDOMEN: Soft, obese, nontender. No rebound or guarding. NEUROLOGIC: She is awake, alert, oriented, communicative. LABORATORY EXAMINATION: WBC is 15.9, hemoglobin 9.6, hematocrit 31.2, platelet 436. Chemistry, sodium 150, potassium 4.1, chloride 111, CO2 of 26, BUN 21, creatinine 1.2, blood sugar of 120. Her Legionella titers are negative. Urinalysis unremarkable. Blood cultures are negative. ASSESSMENT AND PLAN: 1. Multilobar pneumonia. 2. Chronic obstructive pulmonary disease. 3. History of hypertension. 4. Chronic anemia. 5. Bipolar disorder. PLAN: The patient is being discharged home on Vantin 100 mg twice a day. She is on Zithromax 250 daily for another week and prednisone 20 mg twice a day for 5 days. She has nebulizer machine at home and she will resume all her medications as prior to admission Samina Reynolds MD
--- NOTE | 2017-09-29 11:20 | PQF SEPSIS ---
This form is a permanent part of the medical record DR. GARNER ID noted "Severe sepsis with acute renal failure due to HCAP". Please verify if Sepsis was present on admission. Clarification of your documentation is requested to better reflect the severity of illness and intensity of treatment of your patient. Indicators present [] Temp < 96.8 or > 100.4 x[] WBC count > 12,000/mm3 or <000/mm3 or 10% immature neutrophils [] Heart Rate > 90 [] Respiratory Rate > 20 [] Fever or hypothermia [] Chills [] Positive blood cultures [] Hypotension [] Metabolic acidosis (Elevated lactate level, anion gap or reduced blood pH) [] Acute confusion /Altered Mental Status [] Shock [] Other: [] Location in the medical record that reflects the above clinical findings: [] Treatment Provided: [] PHYSICIAN'S RESPONSE Based on your medical judgment of the clinical indicators outlined above, are you treating this patient for a known or suspected: [] Sepsis / Septicemia Please specify organism if known [] [x] SIRS (Systemic Inflammatory Response Syndrome) [] Severe Sepsis (Sepsis with Associated Organ Dysfunction) [] Fever of Unknown Origin [] Other, please indicate: [] [] If Unable to Determine, please check the box, sign and date. Present On Admission (POA) Indicator: [x] Present at the time of admission [] Not present at the time of admission [] Clinically Undetermined In responding to this query, please exercise your independent professional judgment. The fact that a question is asked does not imply that any particular answer is desired or expected. Thank you for your clarification on this documentation. If you have any questions please call:[ ] * Thank you, [X ] CANDI chart computer SHELBY
[2017-09-30] MEDS ORDERED: levoFLOXacin 750 MG TAB PO SCH (10:00)
== END 2017-09-28 16:45 | disposition home or self-care (01) | DRG 194 ==
LOC: ED 08:48 → ERH 10:07 → 5RSO 13:08
PROVIDERS: ADMIT Internal Medicine; ATTEND Internal Medicine
PROC: 3E0F7GC Introduction of Other Therapeutic Substance into Respiratory Tract, Via Natural or Artificial Opening (ICD-10-PCS; principal; 2017-09-25)
DX: J18.9 Pneumonia, unspecified organism (principal); J44.0 Chronic obstructive pulmonary disease with (acute) lower respiratory infection; J44.1 Chronic obstructive pulmonary disease with (acute) exacerbation; N17.9 Acute kidney failure, unspecified; E86.0 Dehydration; R09.02 Hypoxemia; I10 Essential (primary) hypertension; K21.9 Gastro-esophageal reflux disease without esophagitis; E78.5 Hyperlipidemia, unspecified; F31.9 Bipolar disorder, unspecified; D64.9 Anemia, unspecified; G40.909 Epilepsy, unspecified, not intractable, without status epilepticus; E78.00 Pure hypercholesterolemia, unspecified; K27.9 Peptic ulcer, site unspecified, unspecified as acute or chronic, without hemorrhage or perforation; Y95 Nosocomial condition; E66.9 Obesity, unspecified; Z68.31 Body mass index [BMI] 31.0-31.9, adult; Z87.891 Personal history of nicotine dependence